=== PATIENT | female | born 1985 | race Caucasian/White ===

== ENCOUNTER 2017-04-27 20:09 | Emergency (ER) | payer SELFPAY, MEDICAID | END 2017-04-28 01:10 | disposition left against medical advice (07) | LOC: FTE 20:09 | DX: Z53.21 Procedure and treatment not carried out due to patient leaving prior to being seen by health care provider (principal) ==

== ENCOUNTER 2018-03-18 12:56 | Emergency (ER) | payer OTHER, MEDICAID | END 2018-03-18 15:00 | disposition home or self-care (01) | LOC: FTE 12:56 | DX: J06.9 Acute upper respiratory infection, unspecified (principal); J34.89 Other specified disorders of nose and nasal sinuses; Z79.01 Long term (current) use of anticoagulants | CPT/HCPCS: 99283; Z7502 ==

== ENCOUNTER 2018-05-31 16:11 | Emergency (ER) | payer SELFPAY, OTHER | END 2018-05-31 20:52 | disposition left against medical advice (07) | LOC: FTE 20:52 | DX: Z53.21 Procedure and treatment not carried out due to patient leaving prior to being seen by health care provider (principal) ==